=== PATIENT | male | born 1995 | race Caucasian/White ===

== ENCOUNTER 2018-06-28 15:43 | Emergency (ER) | payer OTHER ==
[2018-06-28 16:05] VITALS: BP 129/70
[2018-06-28] MEDS ORDERED: SILVER SULFADIAZINE 1% CREAM 25 GM TP ONE (18:36)
[2018-06-28] MEDS ORDERED: IBUPROFEN 600 MG TABLET PO ONE (18:38)
[2018-06-28] MEDS ORDERED: ACETAMINOPHEN 325 MG TABLET PO ONE (18:38)
[2018-06-28] MEDS ORDERED: DIPH/PERTUSS(ACELL)/TETANUS VAC/PF 0.5 ML SYR (>=10YO) IM ONE (18:39)
--- NOTE | 2018-06-28 18:42 | ER Document Report ---
HPI - HPI Patient complains to provider of: ware upper bilateral arms Onset: Just prior to arrival Pain Level: 3 Context: 22 yo male whose tetanus is not current burned his upper arms osn hot cookie trays that slid off cart that got stuck in floor drain prior to arrival. NKA Associated Symptoms: None Exacerbated by: Denies Relieved by: Denies - ROS ROS below otherwise negative: Yes Systems Reviewed and Negative: Yes All other systems reviewed and negative Past Medical History - General Information source: Patient - Social History Smoking Status: Current Every Day Smoker Chew tobacco use (# tins/day): No Frequency of alcohol use: Occasional Drug Abuse: Marijuana Lives with: Family Family History: Reviewed & Not Pertinent Patient has suicidal ideation: No Patient has homicidal ideation: No - Medical History Medical History: Negative Renal/ Medical History: Denies: Hx Peritoneal Dialysis Surgical Hx: Negative Vertical Provider Document - CONSTITUTIONAL Agree With Documented VS: Yes Exam Limitations: No Limitations General Appearance: No Apparent Distress - INFECTION CONTROL TRAVEL OUTSIDE OF THE [place] IN LAST 30 DAYS: No - DERM Notes: 3 areas of linear superficial 2nd degree ware to right anterior upper arms and 4 areas of same left anterior upper arm. Total burn area 3%, not flexural areas. Course - Re-evaluation Re-evalutation: 06/28/18 Procedure: non viable skin debridement, ultradex sponge with saline cleanse to all areas, guarze and silvadine dressing applied. - Vital Signs Vital signs: Temp Pulse Resp BP Pulse Ox 98.5 F 70 14 129/70 H 99 06/28/18 16:03 06/28/18 16:03 06/28/18 16:03 06/28/18 16:03 06/28/18 16:03 Discharge - Discharge Clinical Impression: First and second-degree ware to arms Condition: Good Disposition: HOME, SELF-CARE Instructions: Acetaminophen, Ware ([facility]), Ibuprofen (General) ([facility]), Sulfa Medications ([facility]), Tetanus Immunization Given (PENDING SALE TO [facility]) Additional Instructions: Shower with antibacterial soap daily and wash the wounds 3 apply the Silvadene gauze and wrapped dressing Wound check in 48 hours Return to the emergency room any concerns for infection fever increased pain Prescriptions: Ibuprofen [Motrin 600 mg Tablet] 600 mg PO Q8HP PRN #30 tablet PRN Reason: Silver Sulfadiazine [Silvadene 1% Cream 400 gm] 1 applic TP DAILY #1 jar Forms: Return to Work
== END 2018-06-28 19:45 | disposition home or self-care (01) ==
LOC: ER 15:43
DX: T22.232A Burn of second degree of left upper arm, initial encounter (principal); T22.231A Burn of second degree of right upper arm, initial encounter; T31.0 Burns involving less than 10% of body surface; X19.XXXA Contact with other heat and hot substances, initial encounter; Y99.0 Civilian activity done for income or pay; F12.10 Cannabis abuse, uncomplicated
CPT/HCPCS: 90471; 90715; 99283

== ENCOUNTER 2018-06-30 14:41 | Emergency (ER) | payer OTHER ==
[2018-06-30 14:54] VITALS: BP 114/53
[2018-06-30] MEDS ORDERED: SILVER SULFADIAZINE 1% CREAM 25 GM TP ONE (15:47)
--- NOTE | 2018-06-30 15:49 | ER Document Report ---
HPI - HPI Patient complains to provider of: burn recheck Onset: Other - 2 days ag Pain Level: 3 Context: 22 yo male burnd upper arms on hot cookie sheets at work 2 days ago. Has cleaned and redressed with silvidine daily. no fever. Associated Symptoms: None Exacerbated by: Denies Relieved by: Denies - ROS ROS below otherwise negative: Yes Systems Reviewed and Negative: Yes All other systems reviewed and negative Past Medical History - General Information source: Patient - Social History Smoking Status: Unknown if Ever Smoked Lives with: Spouse/Significant other Family History: Reviewed & Not Pertinent - Medical History Medical History: Negative Renal/ Medical History: Denies: Hx Peritoneal Dialysis Surgical Hx: Negative Vertical Provider Document - CONSTITUTIONAL Agree With Documented VS: Yes Exam Limitations: No Limitations General Appearance: No Apparent Distress - INFECTION CONTROL TRAVEL OUTSIDE OF THE [place] IN LAST 30 DAYS: No - NEURO Level of Consciousness: Awake - DERM Notes: linear upper arm ware look great, healthy, not infected. redressed with silvidine. Course - Vital Signs Vital signs: Temp Pulse Resp BP Pulse Ox 97.9 F 70 14 114/53 L 98 06/30/18 14:51 06/30/18 14:51 06/30/18 14:51 06/30/18 14:51 06/30/18 14:51 Discharge - Discharge Clinical Impression: Encounter for recheck of burn Condition: Good Disposition: HOME, SELF-CARE Instructions: Ware ([facility]), Silvadene Cream ([facility]), Soap Cleansing ([facility]) Additional Instructions: Continue daily dressing changes Wash with soap and water first and apply Silvadene and replace the dressing Return to the emergency room any concerns. Prescriptions: Silver Sulfadiazine [Silvadene 1% Cream 25 gm] 1 applic TP DAILY #1 tube Forms: Return to Work
== END 2018-06-30 16:10 | disposition home or self-care (01) ==
LOC: ER 14:41
DX: T22.032A Burn of unspecified degree of left upper arm, initial encounter (principal); T22.031A Burn of unspecified degree of right upper arm, initial encounter; X19.XXXA Contact with other heat and hot substances, initial encounter; Y99.0 Civilian activity done for income or pay
CPT/HCPCS: 99282